=== PATIENT | female | born 1990 | race Two or more races ===

== ENCOUNTER 2018-02-23 23:24 | Emergency (ER) | payer MEDICAID, OTHER ==
[~2018-02-23] VITALS: Ht 149.9 cm; Wt 72.7 kg
[2018-02-24 03:57] VITALS: BP 145/82
[2018-02-24] MEDS ORDERED: IBUPROFEN 600 MG TABLET PO ONE (04:45)
== END 2018-02-24 05:21 | disposition home or self-care (01) ==
LOC: EMS 23:24
DX: S60.463A Insect bite (nonvenomous) of left middle finger, initial encounter (principal); W57.XXXA Bitten or stung by nonvenomous insect and other nonvenomous arthropods, initial encounter; Y93.89 Activity, other specified; Y92.89 Other specified places as the place of occurrence of the external cause; Y99.8 Other external cause status
CPT/HCPCS: 99283

== ENCOUNTER 2024-06-27 20:23 | Emergency (ER) | payer OTHER ==
[~2024-06-27] VITALS: Ht 149.9 cm; Wt 83.6 kg
[2024-06-27 20:23] VITALS: BP 135/84
[2024-06-27] MEDS: ALBUTEROL SULFATE 2.5 MG/0.5 ML NEB SOLUTION NEB ONE ×2 (21:02→23:12)
[2024-06-27] MEDS: IPRATROPIUM BROMIDE 0.5 MG/2.5 ML NEB SOLUTION NEB ONE ×2 (21:03→23:12)
[2024-06-27 21:05] VITALS: PULSE 88; RESP 20; O2SAT 99
[2024-06-27 21:20] VITALS: PULSE 88; RESP 20; O2SAT 99
[2024-06-27 22:58] VITALS: TEMP 99; O2SAT 98
[2024-06-27 23:10] VITALS: PULSE 63; RESP 20; O2SAT 97
[2024-06-27] MEDS ORDERED: PRED-554 PO (23:13)
[2024-06-27] MEDS ORDERED: IPRA3AMP24 NEB (23:13)
[2024-06-27] MEDS: PredniSONE 20 MG TABLET PO ONE (23:24)
== END 2024-06-27 23:40 | disposition home or self-care (01) ==
LOC: EMS 20:23
DX: J45.901 Unspecified asthma with (acute) exacerbation (principal)
CPT/HCPCS: 99283; 94640; J7512